=== PATIENT | male | born 1980 | race Two or more races ===

== ENCOUNTER 2020-11-07 09:17 | Emergency (ER) | payer OTHER ==
[2020-11-07 09:39] VITALS: TEMP 97.8; BMI 39.9
[2020-11-07] MEDS ORDERED: IBUPROFEN 600 MG TABLET (FP) PO ONE ×2 (09:48→09:56)
[2020-11-07 10:20] VITALS: BP 147/65; PULSE 89
== END 2020-11-07 10:20 | disposition home or self-care (01) ==
LOC: JER 09:17
DX: S20.219A Contusion of unspecified front wall of thorax, initial encounter (principal); S46.819A Strain of other muscles, fascia and tendons at shoulder and upper arm level, unspecified arm, initial encounter; S66.911A Strain of unspecified muscle, fascia and tendon at wrist and hand level, right hand, initial encounter
CPT/HCPCS: 71045-TC-FY; 93005; 93010; 99284-25